=== PATIENT | female | born 1950 | race Caucasian/White ===

== ENCOUNTER 2016-11-26 09:14 | Inpatient (IN) | payer MEDICARE, BC ==
[2016-11-26] VITALS (10 sets, daily range): BP systolic 98–148; BP diastolic 55–74
[~2016-11-26] VITALS: Ht 157.5 cm; Wt 93.9 kg
[2016-11-26] MEDS ORDERED: IPRA3AMP NEB (11:04)
[2016-11-26] MEDS ORDERED: AZIT250T6 PO (11:04)
[2016-11-26] MEDS ORDERED: CEFP200T PO (11:04)
[2016-11-26] MEDS ORDERED: HYDR12.58 PO (11:04)
[2016-11-26] MEDS ORDERED: ESCI10TA PO (11:04)
[2016-11-26] MEDS ORDERED: METO25TA9 PO (11:07)
[2016-11-26] MEDS ORDERED: ATOR40TA PO (11:07)
[2016-11-26] MEDS ORDERED: METF500T4 PO (11:07)
[2016-11-26] MEDS ORDERED: OSEL75CA PO (11:07)
[2016-11-26] MEDS ORDERED: OMEP20TA PO (11:07)
[2016-11-26] MEDS ORDERED: OXYCODONE/APAP 5/325 TABLET. PO PRN (11:15)
[2016-11-26] MEDS ORDERED: ONDANSETRON PF 4 MG/2 ML VIAL. IV PRN (11:15)
[2016-11-26] MEDS ORDERED: DEXTROSE 50% 25 GM / 50ML DISP.SYRIN. IV PRN (11:15)
[2016-11-26] MEDS ORDERED: PIP/TAZO PER PHARMACY MC PRN (11:15)
[2016-11-26] MEDS: LOSARTAN POTASSIUM 50 MG TABLET. PO SCH (11:30)
[2016-11-26] MEDS: HYDROMORPHONE 2 MG/ML VIAL. IV PRN ×5 (11:30→22:38)
[2016-11-26] MEDS: INSULIN ASPART 300 UNITS/3 ML INSULN.PEN SQ SCH ×2 (12:00→17:00)
--- NOTE | 2016-11-26 12:45 | PDOC2 ---
CARDIAC CONSULT DATE OF CONSULT Date of Consult DATE: 11/26/16 TIME: 12:33 REASON FOR CONSULT Reason for Consult: ?diastolic CHF REFERRING PHYSICIAN Referring Physician: Mukesh SOURCE Source: Chart review, Patient HISTORY OF PRESENT ILLNESS HISTORY OF PRESENT ILLNESS This is a pleasant 66 yo female admitted for complains of increasing SOA. She recently was treated for flu and pneumonia and due to this her activities after discharge has been decreased. She was treated with antibiotics and prednisone. Friday last week she actually went to the grocery store and did well. She felt flushed after gorcery shopping but there was no symptoms of SOA or upper torso pain. The following day Friday she started having right back pain that eventually radiated to right shoulder and hip area. This eventually developed further with SOA, GARCIA, and nonproductive cough. She then proceeded to [place] [facility] and she was noted with bilateral PE. Consult is for possible diastolic CHF. Reports of no prior hx of CHF, nor PE, clotting disorders and this is actually the first time she has had PE. No prior DVTs, falls, LE injury. She is positive for HLP, HTN, DM2 but no hx of CAD, CVA, [place]. Reports that her father had cancer when he was in his 50s and also end up having DVT and PE. Her aunt had PE which was likely related to surgery when she was in her 80s and actually from this. To add from her previous hospitalization she did have a description of possible phlebitis as she described her vein in her left arm skin being blotchy, swollen arm with hard vein. PAST MEDICAL HISTORY Cardiovascular: HTN, Hyperlipidemia Pulmonary: Pneumonia (recent flu) CENTRAL NERVOUS SYSTEM: Other (No pertinent history) GI: Diverticulosis, GERD, Other (barretts esophagus; hiatal and umbilical hernia) Heme/Onc: No pertinent hx Hepatobiliary: Cholelithiasis Psych: No pertinent hx Musculoskeletal: Osteoarthritis ENT: Allergic Rhinitis Renal/: UTI Endocrine: Diabetes (2) Dermatology: No pertinent hx PAST SURGICAL HISTORY Past Surgical History: Cholecystectomy, (x2), Tonsillectomy, Other ( hemorroidectomy; EGD 3 yrs ago noted clearance of barretts) FAMILY HISTORY Family History: Cancer (father), Other (DVT/PE father, aunt father side PE) SOCIAL HISTORY Smoke: No ALCOHOL: none Drugs: None Lives: with Family CURRENT MEDICATIONS CURRENT MEDICATIONS Current Medications Medications (Trade) Dose Ordered Sig/Yao Route PRN Reason Start Time Stop Time Status Last Admin Dose Admin Hydromorphone HCl (Dilaudid) 1 mg PRN Q2HR PRN IV SEVERE PAIN 11/26/16 11:00 11/26/16 11:30 ALLERGIES ALLERGIES: Coded Allergies: codeine (Verified Allergy, Unknown, 11/26/16) ROS Review of System 14 point ROS evaluated with pertinent positives noted per HPI PHYSICAL EXAM General: Alert, Oriented X3, Cooperative, No acute distress HEENT: Atraumatic, Mucous membr. moist/pink Lungs: Other (bibasilarc crackles) Heart: Regular rate (no significnat ectopies), Normal S1, Normal S2, Other (3/ 6 systolic murmur to LLS and PRISCILLA border) Abdomen: Soft, No tenderness Extremities: No cyanosis, Other (trace LE edemaq) Skin: No breakdown, No significant lesion Neuro: Normal speech, Sensation intact Psych/Mental Status: Mental status NL, Mood NL MUSCULOSKELETAL: Osteoarthritic changes both hands VITALS VITALS Vital Signs Date Time Temp Pulse Resp B/P Pulse Ox O2 Delivery O2 Flow Rate FiO2 11/26/16 11:30 20 Nasal Cannula 5.0 ASSESSMENT/PLAN ASSESSMENT/PLAN 1. Bilateral PE with left pleural effusion: no LE DVT 2. Warfarin therapy: INR 5.5. Hgb 9.5 3. Recent left arm phlebitis: no DVT, Extensive occlusive superficial venous thrombosis involving the left basilic vein. 4. Acute diastolic CHF: induced by PE. EKG SR with LVH/S1Q3T3. Appears compensated. 5. HTN: controlled 6. DM2/HLP 7. Family hx of CA/DVT/PE: father and aunt 8. Hypokalemia: corrected 9. Hepatic lesion Recommendations 1. 11/25/2015 TTE with normal wall motion, EF 55-60%, mid MR/mod TR with RSVP of 56 mmHg. PE treatment per pulmonary 2. Continue with antiHTN- BB/ARB 3. Pro NT BNP, TSH. Coag w/u per PCP/pulmonary 4. Hemodynamically stable. No further workup is warranted at this time. 5. Continue with secondary prevention Problems: JERED DELGADO APRN Nov 26, 2016 12:45
--- NOTE | 2016-11-26 13:05 | PDOC ---
Provider Note Provider Note DICTATED XI MAGAÑA MD Nov 26, 2016 13:05
--- NOTE | 2016-11-26 13:19 | CONS ---
DATE OF CONSULTATION: ATTENDING PHYSICIAN: Dr. Mayorga. REASON FOR CONSULTATION: Hypoxic respiratory failure and pulmonary embolism. HISTORY OF PRESENT ILLNESS: The patient is a 66-year-old female who was hospitalized around end of October and was treated for influenza pneumonia and sepsis. She was subsequently discharged home. She was brought into the hospital at [facility] with sudden onset of shortness of breath and also mid thoracic back pain. She was seen in the Emergency Room where a CT angiogram of the chest was performed and showed bilateral pulmonary emboli, more on the left than on the right. I have reviewed the CT chest myself. The patient also had some mild ground glass lung infiltrates with lower lobes and at that time, she was treated with anticoagulation. While in the hospital, her oxygen requirement did increase. She did gain 9 pounds while in the hospital. Since her oxygen requirement increased, another CT angiogram was performed on the , which was reviewed by me. Overall, there was no significant change, may be slight mild improvement on the right side. She had a large hiatal hernia. There was some fluid in the esophagus. The CT abdomen and pelvis continued to have a lesion in the liver. The patient also has some scattered small sclerotic foci in the osseous structures. The radiologist suggested an MRI of the abdomen. The patient is transferred to [facility] for further evaluation. she is currently requiring a simple facemask, saturation of 97-98%. She feels comfortable with no obvious respiratory distress. She has no increased chest pain. She has a mild cough. No calf pain. The patient's all imaging studies were reviewed. PAST MEDICAL HISTORY: Significant for hypertension, type 2 diabetes, hyperlipidemia, osteoarthritis, gastroesophageal reflux disease and history of recent influenza. PAST SURGICAL HISTORY: Cholecystectomy, tonsillectomy, , hemorrhoidectomy, EGD and she had a mammogram done in the past as well. ALLERGIES: CODEINE. MEDICATIONS: Upon transfer were reviewed. FAMILY HISTORY: Her mother had pulmonary embolism. Her father had cancer and also DVT in his 50s. Mother at age 74 due to CVA. SOCIAL HISTORY: She is , has 2 daughters, nonsmoker, nonalcoholic. REVIEW OF SYSTEMS: Twelve-point systems obtained. Pertinent positives discussed in history of present illness, otherwise noncontributory. All systems that were negative were reviewed as well. PHYSICAL EXAMINATION: GENERAL: She is awake, following commands. VITAL SIGNS: Blood pressure 112 systolic. Pulse ox is 97% on 5 liters. Afebrile. HEENT: Sclerae nonicteric. NECK: Supple. LUNGS: Diminished breath sounds. CARDIOVASCULAR: Regular rate and rhythm. ABDOMEN: Soft, nontender. EXTREMITIES: With no pitting edema. LABORATORY DATA: From [facility] were reviewed. IMAGING STUDIES: From [facility] were reviewed as well. IMPRESSION: 1. Acute pulmonary embolism in a patient who was hospitalized for influenza at the end of October and most likely immobilization was a risk factor. However, she does have a family history of thromboembolic disease and I would like to rule out hypercoagulable state. She has an abnormal liver lesion and the possibility for malignancy contributing to PE cannot be ruled out. She has some sclerotic lesions in the bones as well. 2. Acute hypoxic respiratory failure. I suspect this is secondary to pulmonary embolism; the followup CT chest has shown no further worsening. There are some ground glass infiltrates, which may suggest some mild pulmonary edema. She did gain 9 pounds while in the hospital. At this point, I would hold off on Lasix until blood pressure more stabilizes. 3. No significant history of tobacco use. 4. Abnormal CT abdomen and pelvis with suspected lesion in the liver and sclerotic lesions in the bones. She also has hiatal hernia with some dilated esophagus. We will get a CT of the liver or MRI of the liver to get a better idea about any malignancy. RECOMMENDATIONS: 1. Continue with present 5 liters of oxygen. 2. Mild diuresis if blood pressures remained stable. 3. Obtain MRI of the liver vs US liver 4. Obtain a hypercoagulable panel. 5. Continue with present full anticoagulation. 6. She will need a minimum of 3-6 months of anticoagulation. 7. Repeat CT chest in 4-6 weeks. 8. Emperic antibiotics 9. Discussed in detail with the patient's and also with Dr. Mayorga and will follow along with you. Critical care time 45 minutes. XI MAGAÑA MD DR: VANDANA/camila JOB#: [id number] / [id number] MELISSA
[2016-11-26] MEDS: PIPERACILLIN/TAZOBACTAM 4.5 GM in IV NORMAL SALINE 100ML 100 ML IV SCH ×2 (13:58→23:11)
[2016-11-26 14:26] LABS: BASO % 0 % (0-3); EOS % 0 % (0-3); HEMATOCRIT 30.5 % (36.0-47.0); LYMPH # 0.9 x10^3/uL (1.0-4.8); LYMPH % 6 % (24-48); MEAN CORPUSCULAR HEMOGLOBIN 30 pg (25-35); MEAN CORPUSCULAR HGB CONC 33 g/dL (31-37); MEAN CORPUSCULAR VOLUME 90 fL (79-100); MONO % 7 % (0-9); NEUT % 87 % (31-73); PLATELET COUNT 274 x10^3/uL (140-400); RED CELL DISTRIBUTION WIDTH 15.1 % (11.5-14.5); WHITE BLOOD COUNT 14.8 x10^3/uL (4.0-11.0)
[2016-11-26 14:35] LABS: INR 4.3 (0.8-1.1); PROTHROMBIN TIME PATIENT 39.2 SEC (11.7-14.0)
[2016-11-26 14:40] LABS: CALCIUM 9.8 mg/dL (8.5-10.1); GFR 55.3; POTASSIUM 3.8 mmol/L (3.5-5.1)
[2016-11-26 14:45] LABS: ALBUMIN 2.7 g/dL (3.4-5.0); ALBUMIN/GLOBULIN RATIO 0.6 (1.0-1.7); TOTAL BILIRUBIN 0.3 mg/dL (0.2-1.0); TOTAL PROTEIN 7.6 g/dL (6.4-8.2)
[2016-11-26 14:57] LABS: % EOS 1 % (0-5)
[2016-11-26 14:59] LABS: PLT ESTIMATE ADEQUATE (ADEQUATE); TOXIC GRANULATION SLIGHT
--- NOTE | 2016-11-26 15:47 | RAD ---
Hepatic ultrasound, 11/26/2016: History: Liver lesion seen on CT study An outside CT study from 11/24/2016 demonstrated a a hypervascular lesion in the right lobe of the liver. Sonographic evaluation of the liver failed to delineate this mass, presumably due to technical factors. No hepatic mass or bile duct dilatation is currently seen. Hepatic protocol MR scanning with gadolinium may be useful for further evaluation, if clinically indicated.
[2016-11-26] MEDS: PANTOPRAZOLE 40 MG TABLET. PO SCH (16:00)
[2016-11-26] MEDS: GUAIFENESIN DM 600/30MG TAB.ER.12H. PO SCH ×2 (16:00→19:58)
[2016-11-26] MEDS: LIDOCAINE (700MG/PATCH) PATCH. TD SCH (16:01)
[2016-11-26] MEDS: IPRATRPIUM/ALBUTEROL 0.5/2.5MG 3 ML NEBU. NEB SCH ×2 (17:17→20:27)
[2016-11-26 17:37] LABS: CHOLESTEROL/HDL RATIO 3.8
--- NOTE | 2016-11-26 21:51 | HP ---
ADMIT DATE: 11/26/2016 HISTORY OF PRESENT ILLNESS: The patient is a 66-year-old female patient who was admitted on 11/21/2016 to the Emergency Room of [facility]. She was complaining of pain and swelling of her left upper extremity and also sudden onset of right-sided chest pain and shortness of breath. She does have also cough that is mostly dry. She was discharged from [facility] on 11/04/2016 after she was treated there with influenza A and pneumonia. She was there for about 3 days and treated with Zithromax, Vantin and Tamiflu. She apparently called her primary care physician, Dr. Mar, complaining about her left arm pain and swelling. She also complained of shortness of breath and sudden onset of mid thoracic back pain of 30 minutes duration. She was sent to the Emergency Room for further evaluation. Apparently, her chest x-ray showed minimal visible infiltrate in her right lower lobe and lingula and these infiltrates were much better documented on her recent CT scan. She did have a CT scan of the chest with PE protocol, which showed that the patient has bilateral pulmonary emboli and there was improvement in her right lower lobe lingular and left upper lobe infiltrate since the previous study. She does have mild ground-glass lung infiltrates within the lower lobes bilaterally, which may indicate mild pulmonary edema. She has new finding with small area of nodularity with medial segment of the right middle lobe, mild cardiomegaly, hiatal hernia; however, there was no focal aneurysmal dilatation seen. No aortic dissection is evident. The heart size is mildly enlarged, no pericardial effusion. She has a small hiatal hernia that was present and large axillary lymph node seen. There is a left axillary soft tissue edema consistent with the patient's history of thrombophlebitis. There are some reactive lymph nodes within the mediastinum, the ground glass-lung infiltrate is in both lung lower lobes, which could pulmonary edema, no osteolytic process seen, no adrenal mass is evident. The patient was started on Lovenox 1 mg/kg, was started on IV fluid. Her lactic acid was slightly elevated at 2.6 and has been rising; however, her blood pressure has been if anything high with no documented hypertension. She was on metformin and that was discontinued. She was exposed to the contrast. Subsequent events showed that her lactic acid continued to be persistently elevated and she was treated with IV fluid and also I did start her on vancomycin as well as Zosyn as her white cell count was high at 17,000 and she actually did very well up until Friday morning around 3:00 when she started having severe right-sided chest pain. I did repeat her CT scan, which did not show any new abnormality. She did have Doppler ultrasound of the left upper extremity, which basically showed that the veins that were interrogated include left internal jugular, left subclavian, left axillary, left brachial, left cephalic, left basilic, and left radial and left ulnar veins and superficial venous thrombosis are seen involving the left basilic vein in the forearm and upper arm. Other veins in the left upper extremity are patent and without evidence of venous thrombosis. CT scan of the abdomen and pelvis showed that she has nonspecific lesion in the right lobe of the liver. She has also some sclerotic lesions in the bones and we did actually try to do a bone scan, but the patient was very short of breath and was unable to lie flat. She did have an echocardiogram of her heart, which showed that her left ventricle is normal in size. Left ventricular systolic function is normal with ejection fraction 55-60%. There is borderline concentric left ventricular hypertrophy. There is no significant aortic valvular stenosis. Doppler and color flow revealed no significant aortic regurgitation. Doppler and color flow revealed mild mitral regurgitation. Doppler and color flow revealed moderate tricuspid valve regurgitation, right ventricular systolic pressure of 56 mmHg. There is no evidence of significant pericardial effusion. Her INR was within therapeutic range and in fact yesterday her INR was 5, so we discontinued Lovenox and held Coumadin. Despite this, the patient continued to do poorly. She continued to be complaining of severe right-sided chest pain mostly to be pleuritic, she is hypoxic and has also developed mild respiratory acidosis and carbon dioxide retention and therefore, a decision was made to transfer her to ICU at [facility] to be evaluated by c d still operator and wire bender. PAST MEDICAL HISTORY: Significant for hypertension, type 2 diabetes mellitus, hyperlipidemia, osteoarthritis, gastroesophageal reflux disease. She was admitted recently with bilateral lung infiltrate and influenza, treated with Tamiflu as well as Vantin and Zithromax. PAST SURGICAL HISTORY: Significant for cholecystectomy, tonsillectomy, 2 sections, hemorrhoidectomy. She has also had an EGD before and was found to have gastric ulcer which has completely healed on most recent EGD. She has had also colonoscopy screening and was apparently unremarkable. ALLERGIES: She is allergic to CODEINE. MEDICATIONS: She is currently on the following medications: She is on atorvastatin calcium 40 mg at bedtime, citalopram. She is on guaifenesin DM 600/30 one tablet twice a day, hydromorphone 1 mg IV every 2 hours. She is on NovoLog insulin sliding scale, ipratropium bromide, albuterol inhaler every 4 hours, Lidoderm patch applied topically to the right side of the chest. Stated that she is on linezolid 600 mg IV q. 12 hourly, losartan potassium 50 mg once a day, metoprolol succinate 25 mg once a day, Zofran 4 mg IV every 4 hours, oxycodone/APAP 5/325 one tablet every 6 hours, Protonix 40 mg once a day. She is also on Zosyn 3.375 grams IV q. 8 hourly and warfarin that is on hold. FAMILY HISTORY: She has 1 older brother who has had coronary artery bypass graft surgery x 6 with stent deployment and the younger sister who had CVA at the age of 50. Her father of colon cancer in his 60s and apparently has had DVT in his 50s, he is known to have COPD. Her mother at age of 74 as a complication of cerebrovascular accident. SOCIAL HISTORY: She is , has 2 daughters. She never smoked. Drinks alcohol occasionally. 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 She denied any flying for long distances or driving for long distances. She has not been on any hormone replacement therapy. recent admission for 3 days in the hospital, she has not been sick or bed bound. She has never had any problems during in the form of recurrent miscarriages. PHYSICAL EXAMINATION: GENERAL: On arrival to [facility] she was resting slightly propped up in bed, in no apparent distress. She was pale, but no jaundice, cyanosis or thyromegaly. No jugular venous distention. She has bilateral lower limb edema. VITAL SIGNS: Her heart rate was 74, blood pressure was 110/60, respiratory rate was 24, and oxygen saturation was 98% on 5 liters of oxygen. HEAD, EYES, EARS, NOSE AND THROAT: Showed normocephalic, atraumatic. NECK: Supple. HEART: Showed normal first and second heart sounds with no gallop, rub or murmur. CHEST: Clear to auscultation. No crepitation or rhonchi. ABDOMEN: Distended, soft, nontender. No guarding or rigidity. No organomegaly. Hernial orifices intact. Bowel sounds normal. NEUROLOGIC: She is awake, alert, responding appropriately. Cranial nerves intact. EXTREMITIES: She moves extremities without difficulty. PLAN: My plan is to repeat all her lab work and consult the c d still operator as well as the wire bender and continue all her medication and hold Coumadin as her INR is supratherapeutic. HECTOR ROMERO MD DR: SIMIN/camila JOB#: [id number] / [id number]
[2016-11-26] MEDS: METOPROLOL SUCC 24HR ER 25 MG TAB.ER.24H. PO SCH (22:00)
[2016-11-26] MEDS ORDERED: ALPRAZOLAM 0.25 MG TABLET PO PRN (23:00)
[2016-11-27] VITALS (23 sets, daily range): BP systolic 101–154; BP diastolic 51–79
[2016-11-27] MEDS: HYDROMORPHONE 2 MG/ML VIAL. IV PRN (03:34)
[2016-11-27] MEDS: PIPERACILLIN/TAZOBACTAM 4.5 GM in IV NORMAL SALINE 100ML 100 ML IV SCH ×3 (05:48→21:36)
[2016-11-27] MEDS: IPRATRPIUM/ALBUTEROL 0.5/2.5MG 3 ML NEBU. NEB SCH ×4 (07:39→20:02)
[2016-11-27] MEDS: INSULIN ASPART 300 UNITS/3 ML INSULN.PEN SQ SCH ×3 (08:00→17:00)
[2016-11-27 09:04] LABS: INR 3.1 (0.8-1.1)
[2016-11-27] MEDS: LOSARTAN POTASSIUM 50 MG TABLET. PO SCH (09:05)
[2016-11-27] MEDS: GUAIFENESIN DM 600/30MG TAB.ER.12H. PO SCH ×2 (09:05→21:42)
[2016-11-27] MEDS: LIDOCAINE (700MG/PATCH) PATCH. TD SCH (09:05)
[2016-11-27] MEDS: PANTOPRAZOLE 40 MG TABLET. PO SCH (09:05)
[2016-11-27] MEDS: KETOROLAC 15 MG/ML VIAL. IV PRN ×2 (10:44→16:14)
[2016-11-27] MEDS: FENTANYL 25MCG/HR PATCH. TD SCH (10:44)
[2016-11-27] MEDS ORDERED: FUROSEMIDE 20 MG/2 ML VIAL IVP ONE (11:00)
--- NOTE | 2016-11-27 11:10 | PDOC ---
PULMONARY PROGRESS NOTES Subjective slightly better still c/o right back pain Vitals Vital Signs Date Time Temp Pulse Resp B/P Pulse Ox O2 Delivery O2 Flow Rate FiO2 11/27/16 10:44 92 Nasal Cannula 5.0 11/27/16 10:00 92 20 124/65 11/27/16 08:00 98.1 98.1 General: Alert, No acute distress Lungs: Clear Cardiovascular: S1 Abdomen: Soft Neuro Exam: Alert Extremities: No Edema Skin: Warm Labs Laboratory Tests Test 11/26/16 11:00 11/26/16 13:15 11/26/16 17:35 11/27/16 08:25 Nasal Screen MRSA (PCR) Negative (Negative) White Blood Count 14.8x10^3/uL (4.0-11.0) Red Blood Count 3.40x10^6/uL (3.50-5.40) Hemoglobin 10.0g/dL (12.0-15.5) Hematocrit 30.5% (36.0-47.0) Mean Corpuscular Volume 90fL (79-100) Mean Corpuscular Hemoglobin 30pg (25-35) Mean Corpuscular Hemoglobin Concent 33g/dL (31-37) Red Cell Distribution Width 15.1% (11.5-14.5) Platelet Count 274x10^3/uL (140-400) Neutrophils (%) (Auto) 87% (31-73) Lymphocytes (%) (Auto) 6% (24-48) Monocytes (%) (Auto) 7% (0-9) Eosinophils (%) (Auto) 0% (0-3) Basophils (%) (Auto) 0% (0-3) Neutrophils # (Auto) 12.8x10^3uL (1.8-7.7) Lymphocytes # (Auto) 0.9x10^3/uL (1.0-4.8) Monocytes # (Auto) 1.0x10^3/uL (0.0-1.1) Eosinophils # (Auto) 0.0x10^3/uL (0.0-0.7) Basophils # (Auto) 0.0x10^3/uL (0.0-0.2) Segmented Neutrophils % 86% (35-66) Band Neutrophils % 2% (0-9) Lymphocytes % 6% (24-48) Monocytes % 5% (0-10) Eosinophils % 1% (0-5) Toxic Granulation Slight Platelet Estimate Adequate (ADEQUATE) Prothrombin Time 39.2SEC (11.7-14.0) 30.0SEC (11.7-14.0) Prothromb Time International Ratio 4.3 (0.8-1.1) 3.1 (0.8-1.1) Sodium Level 143mmol/L (136-145) Potassium Level 3.8mmol/L (3.5-5.1) Chloride Level 104mmol/L (98-107) Carbon Dioxide Level 28mmol/L (21-32) Anion Gap 11 (6-14) Blood Urea Nitrogen 22mg/dL (7-20) Creatinine 1.0mg/dL (0.6-1.0) Estimated GFR (Cockcroft-Gault) 55.3 BUN/Creatinine Ratio 22 (6-20) Glucose Level 120mg/dL (70-99) Calcium Level 9.8mg/dL (8.5-10.1) Magnesium Level 2.2mg/dL (1.8-2.4) Total Bilirubin 0.3mg/dL (0.2-1.0) Aspartate Amino Transf (AST/SGOT) 35U/L (15-37) Alanine Aminotransferase (ALT/SGPT) 72U/L (14-59) Alkaline Phosphatase 81U/L (46-116) NP-Yhb-Y-Type Natriuretic Peptide 554pg/mL (0-124) Total Protein 7.6g/dL (6.4-8.2) Albumin 2.7g/dL (3.4-5.0) Albumin/Globulin Ratio 0.6 (1.0-1.7) Triglycerides Level 136mg/dL (0-150) Cholesterol Level 195mg/dL (0-200) LDL Cholesterol, Calculated 117mg/dL (0-100) VLDL Cholesterol, Calculated 27mg/dL (0-40) HDL Cholesterol 51mg/dL (40-60) Cholesterol/HDL Ratio 3.8 Thyroid Stimulating Hormone (TSH) 0.433uIU/mL (0.358-3.74) Glucose (Fingerstick) 105mg/dL (70-99) Test 11/27/16 08:58 Glucose (Fingerstick) 118mg/dL (70-99) Laboratory Tests Test 11/26/16 13:15 11/26/16 17:35 11/27/16 08:25 11/27/16 08:58 White Blood Count 14.8x10^3/uL (4.0-11.0) Red Blood Count 3.40x10^6/uL (3.50-5.40) Hemoglobin 10.0g/dL (12.0-15.5) Hematocrit 30.5% (36.0-47.0) Mean Corpuscular Volume 90fL (79-100) Mean Corpuscular Hemoglobin 30pg (25-35) Mean Corpuscular Hemoglobin Concent 33g/dL (31-37) Red Cell Distribution Width 15.1% (11.5-14.5) Platelet Count 274x10^3/uL (140-400) Neutrophils (%) (Auto) 87% (31-73) Lymphocytes (%) (Auto) 6% (24-48) Monocytes (%) (Auto) 7% (0-9) Eosinophils (%) (Auto) 0% (0-3) Basophils (%) (Auto) 0% (0-3) Neutrophils # (Auto) 12.8x10^3uL (1.8-7.7) Lymphocytes # (Auto) 0.9x10^3/uL (1.0-4.8) Monocytes # (Auto) 1.0x10^3/uL (0.0-1.1) Eosinophils # (Auto) 0.0x10^3/uL (0.0-0.7) Basophils # (Auto) 0.0x10^3/uL (0.0-0.2) Segmented Neutrophils % 86% (35-66) Band Neutrophils % 2% (0-9) Lymphocytes % 6% (24-48) Monocytes % 5% (0-10) Eosinophils % 1% (0-5) Toxic Granulation Slight Platelet Estimate Adequate (ADEQUATE) Prothrombin Time 39.2SEC (11.7-14.0) 30.0SEC (11.7-14.0) Prothromb Time International Ratio 4.3 (0.8-1.1) 3.1 (0.8-1.1) Sodium Level 143mmol/L (136-145) Potassium Level 3.8mmol/L (3.5-5.1) Chloride Level 104mmol/L (98-107) Carbon Dioxide Level 28mmol/L (21-32) Anion Gap 11 (6-14) Blood Urea Nitrogen 22mg/dL (7-20) Creatinine 1.0mg/dL (0.6-1.0) Estimated GFR (Cockcroft-Gault) 55.3 BUN/Creatinine Ratio 22 (6-20) Glucose Level 120mg/dL (70-99) Calcium Level 9.8mg/dL (8.5-10.1) Magnesium Level 2.2mg/dL (1.8-2.4) Total Bilirubin 0.3mg/dL (0.2-1.0) Aspartate Amino Transf (AST/SGOT) 35U/L (15-37) Alanine Aminotransferase (ALT/SGPT) 72U/L (14-59) Alkaline Phosphatase 81U/L (46-116) ST-Tvw-O-Type Natriuretic Peptide 554pg/mL (0-124) Total Protein 7.6g/dL (6.4-8.2) Albumin 2.7g/dL (3.4-5.0) Albumin/Globulin Ratio 0.6 (1.0-1.7) Triglycerides Level 136mg/dL (0-150) Cholesterol Level 195mg/dL (0-200) LDL Cholesterol, Calculated 117mg/dL (0-100) VLDL Cholesterol, Calculated 27mg/dL (0-40) HDL Cholesterol 51mg/dL (40-60) Cholesterol/HDL Ratio 3.8 Thyroid Stimulating Hormone (TSH) 0.433uIU/mL (0.358-3.74) Glucose (Fingerstick) 105mg/dL (70-99) 118mg/dL (70-99) Medications Active Scripts Medications Dose Route/Sig Days Date Category Tamiflu (Oseltamivir Phosphate) 75 Mg Capsule 75 Mg PO BID 11/26/16 Reported Omeprazole 20 Mg Tablet.dr 20 Mg PO DAILY 11/26/16 Reported Metoprolol Succinate ( Xl ) (Metoprolol Succinate) 25 Mg Tab.er.24h 50 Mg PO DAILY 11/26/16 Reported Metformin Hcl 500 Mg Tablet 500 Mg PO DAILY08 11/26/16 Reported Lipitor (Atorvastatin Calcium) 40 Mg Tablet 40 Mg PO HS 11/26/16 Reported Escitalopram Oxalate 10 Mg Tablet 1 Tab PO DAILY 11/26/16 Reported Duoneb 0.5-3(2.5) Mg/3 Ml (Albuterol/Ipratropium) 3 Ml Ampul.neb 3 Ml NEB QID 11/26/16 Reported Hydrochlorothiazide Tablet (Hydrochlorothiazide) 12.5 Mg Tablet 12.5 Mg PO DAILY 11/26/16 Reported Cefpodoxime Proxetil 200 Mg Tablet 200 Mg PO BID 11/26/16 Reported Azithromycin Tablet (Azithromycin) 250 Mg Tablet 250 Mg PO PRN DAILY 11/26/16 Reported Impression . 1. Acute pulmonary embolism in a patient who was hospitalized for influenza at the end of October and most likely immobilization was a risk factor. However, she does have a family history of thromboembolic disease and I would like to rule out hypercoagulable state. She has an abnormal liver lesion and the possibility for malignancy contributing to PE cannot be ruled out. She has some sclerotic lesions in the bones as well. 2. Acute hypoxic respiratory failure. I suspect this is secondary to pulmonary embolism; the followup CT chest has shown no further worsening. There are some ground glass infiltrates, which may suggest some mild pulmonary edema. She did gain 9 pounds while in the hospital. At this point, I would hold off on Lasix until blood pressure more stabilizes. 3. No significant history of tobacco use. 4. Abnormal CT abdomen and pelvis with suspected lesion in the liver and sclerotic lesions in the bones. She also has hiatal hernia with some dilated esophagus. We will get a CT of the liver or MRI of the liver to get a better idea about any malignancy. Plan . 1. wean oxygen. 2. Mild diuresis today 3. Obtain MRI of the liver / US liver non diagnostic 4. hypercoagulable panel. 5. Continue with present full anticoagulation once INR normalizes 6. She will need a minimum of 3-6 months of anticoagulation. 7. Repeat CT chest in 4-6 weeks. 8. Emperic antibiotics 9. Discussed in detail with the patient's and also with Dr. Mayorga and will follow along with you. XI MAGAÑA MD Nov 27, 2016 11:10
[2016-11-27 11:23] LABS: HOMOCYSTINE LEVEL 7.6 umol/L (0.0-15.0)
[2016-11-27] MEDS ORDERED: MEXI200C PO (11:46)
[2016-11-27] MEDS ORDERED: LORA-434 PO (11:46)
[2016-11-27] MEDS ORDERED: LORA2TAB89 PO (11:46)
[2016-11-27] MEDS ORDERED: FAMO-63 PO (11:46)
[2016-11-27] MEDS ORDERED: SPIR25TA3 PO (11:46)
[2016-11-27] MEDS ORDERED: PANT40GR PO (11:46)
[2016-11-27] MEDS ORDERED: ESZO3TAB9 PO (11:46)
[2016-11-27] MEDS ORDERED: HYDR-2679 PO (11:46)
[2016-11-27] MEDS ORDERED: ALBU2.5V5 NEB (11:46)
[2016-11-27] MEDS ORDERED: GABA-585 PO (11:46)
[2016-11-27] MEDS ORDERED: OLAN5TAB3 PO (11:46)
[2016-11-27] MEDS ORDERED: DIVA500T4 PO (11:46)
[2016-11-27] MEDS ORDERED: DOCU-27 PO (11:46)
[2016-11-27] MEDS ORDERED: MAGN400T3 PO (11:46)
[2016-11-27] MEDS ORDERED: FURO-68 PO (11:46)
[2016-11-27] MEDS ORDERED: NITR1PAT9 TD (11:46)
[2016-11-27] MEDS ORDERED: FLUO20CA16 PO (11:46)
[2016-11-27] MEDS ORDERED: METO25TA4 PO (11:46)
[2016-11-27] MEDS ORDERED: METO5TAB4 PO (11:46)
[2016-11-27] MEDS ORDERED: GADOBUTROL 10 MMOL/10 ML VIAL IV ONE (14:00)
--- NOTE | 2016-11-27 15:12 | RAD ---
EXAM: MRI abdomen with and without contrast HISTORY: Liver lesion on prior CT TECHNIQUE: MRI of the abdomen was performed before and after the intravenous administration of 10 mL Gadavist. COMPARISON: Prior ultrasound and CT. FINDINGS: Liver: Hepatic parenchymal signal loss on opposed phase images indicates mild diffuse hepatic steatosis. Postcontrast analysis is limited by delayed contrast timing on most series given and injector malfunction. There is a T2 hyperintense, enhancing mass in hepatic segment 7 that measures 2.0 x 1.6 cm. Enhancement is persistent and matches the aorta on all series. This is consistent with a benign hemangioma. Biliary tree: The gallbladder is surgically absent. The common duct is mildly dilated at 8 mm. There is no dislocation or lesion. There are no suspicious pancreatic parenchymal lesions. The pancreatic duct is not dilated. Other findings: There is a moderate to large hiatal hernia. The spleen, adrenal glands and kidneys are unremarkable. Stool throughout the colon is consistent with constipation. There is atelectasis or consolidation in the right greater than left lung bases. There is a small right pleural effusion. The heart is at least mildly enlarged. IMPRESSION: 1. 2.0 cm mass in the right hepatic lobe consistent with a benign hemangioma. 2. Mild diffuse hepatic steatosis. 3. Mild extrahepatic biliary dilatation status post cholecystectomy. Correlate for cholestasis to assess significance. 4. Moderate to large hiatal hernia. 5. Right greater than left basilar atelectasis or infiltrate. Small right pleural effusion. 6. At least mild cardiomegaly.
[2016-11-27] MEDS: METOPROLOL SUCC 24HR ER 25 MG TAB.ER.24H. PO SCH (21:30)
[2016-11-28] VITALS (13 sets, daily range): BP systolic 107–154; BP diastolic 53–84
[2016-11-28] MEDS: KETOROLAC 15 MG/ML VIAL. IV PRN ×2 (05:26→19:36)
[2016-11-28] MEDS: PIPERACILLIN/TAZOBACTAM 4.5 GM in IV NORMAL SALINE 100ML 100 ML IV SCH (05:28)
[2016-11-28 05:42] LABS: BASO % 0 % (0-3); EOS % 4 % (0-3); HEMATOCRIT 27.1 % (36.0-47.0); HEMOGLOBIN 9.1 g/dL (12.0-15.5); LYMPH # 1.7 x10^3/uL (1.0-4.8); LYMPH % 31 % (24-48); MEAN CORPUSCULAR HEMOGLOBIN 30 pg (25-35); MEAN CORPUSCULAR HGB CONC 34 g/dL (31-37); MEAN CORPUSCULAR VOLUME 90 fL (79-100); MONO % 12 % (0-9); NEUT % 53 % (31-73); PLATELET COUNT 265 x10^3/uL (140-400); RED BLOOD COUNT 3.01 x10^6/uL (3.50-5.40); RED CELL DISTRIBUTION WIDTH 15.6 % (11.5-14.5); WHITE BLOOD COUNT 5.6 x10^3/uL (4.0-11.0)
--- NOTE | 2016-11-28 05:50 | PN ---
DATE: 11/27/2016 SUBJECTIVE: The patient was sitting in a wheelchair on her way to the MRI. When questioning her, stated that her pain is much improved, has no shortness of breath. She was evaluated by Dr. Bearden and the cardiology team. No further cardiac workup was recommended by the cardiology team and Dr. Bearden recommended continuing full anticoagulation. We did ultrasound of the abdomen, which was basically unremarkable. The CT scan done at [facility] demonstrated hypervascular lesion in the right lobe of the liver; however, sonographic evaluation there failed to delineate this mass, presumably due to technical factors. No hepatic mass or bile duct dilatation is currently seen. Hepatic protocol MR was suggested and the patient is scheduled to have that done today. PHYSICAL EXAMINATION: GENERAL: When I examined her, she looked well and was clearly in no apparent respiratory distress. She was slightly pale, but no jaundice, cyanosis or thyromegaly. No jugular venous distension. No limb edema. VITAL SIGNS: Her heart rate was 97, blood pressure was 113/60, temperature was 97.6, respiratory rate 20, and oxygen saturation was 91% on 3 liters of oxygen. HEAD, EYES, EARS, NOSE AND THROAT: Normocephalic, atraumatic. NECK: Supple. HEART: Showed normal first and second heart sounds with no gallop, rub or murmur. CHEST: Clear to auscultation. No crepitation or rhonchi. ABDOMEN: Distended, soft, nontender. NEUROLOGIC: She is awake, alert, responding appropriately. Cranial nerves intact. She moves all extremities without difficulty. Her intake over the last 24 hours was 650, output was 900. LABORATORY DATA: Showed a white cell count of 14,800, hemoglobin 10, hematocrit 30, MCV 90 and platelet count 274,000. Her chemistry showed a serum sodium 143, potassium 3.8, chloride 104, bicarbonate 28, anion gap of 11, BUN 22, creatinine 1, estimated GFR was 55 mL per minute. Her glucose was 120, calcium was 9.8, magnesium was 2.2. Total bilirubin, AST, ALT, alkaline phosphatase were normal. Pro B-type natriuretic peptide was 554, total protein was 7.6, albumin was 2.7. TSH is normal at 0.43. Her prothrombin time this morning was 30. INR of 3.1. Her nasal screen for MRSA by PCR was negative. PLAN: To continue with full anticoagulation. Continue with IV antibiotics for now, continue with pain management, antihypertensive medication. Continue to monitor her blood sugars and adjust insulin as needed. We will await the results of the MRA of the liver and decide on further management accordingly. She has also some sclerotic lesion on her bones and she might require a bone scan to elaborate this further. HECTOR ROMERO MD DR: SIMIN/camila JOB#: [id number] / [id number]
[2016-11-28 05:53] LABS: INR 2.7 (0.8-1.1)
[2016-11-28 06:36] LABS: ALBUMIN 2.4 g/dL (3.4-5.0); ALBUMIN/GLOBULIN RATIO 0.6 (1.0-1.7); CALCIUM 9.1 mg/dL (8.5-10.1); CREATININE 0.8 mg/dL (0.6-1.0); GFR 71.5; POTASSIUM 3.6 mmol/L (3.5-5.1); TOTAL BILIRUBIN 0.3 mg/dL (0.2-1.0); TOTAL PROTEIN 6.5 g/dL (6.4-8.2)
[2016-11-28] MEDS: IPRATRPIUM/ALBUTEROL 0.5/2.5MG 3 ML NEBU. NEB SCH ×2 (07:10→11:40)
[2016-11-28] MEDS: INSULIN ASPART 300 UNITS/3 ML INSULN.PEN SQ SCH ×3 (08:00→17:00)
[2016-11-28] MEDS: PANTOPRAZOLE 40 MG TABLET. PO SCH (08:28)
[2016-11-28] MEDS: GUAIFENESIN DM 600/30MG TAB.ER.12H. PO SCH ×2 (08:28→21:46)
[2016-11-28] MEDS: LOSARTAN POTASSIUM 50 MG TABLET. PO SCH (08:28)
[2016-11-28] MEDS: LIDOCAINE (700MG/PATCH) PATCH. TD SCH (08:29)
--- NOTE | 2016-11-28 10:46 | PDOC ---
PULMONARY PROGRESS NOTES Subjective FEELS better off oxygen Vitals Vital Signs Date Time Temp Pulse Resp B/P Pulse Ox O2 Delivery O2 Flow Rate FiO2 11/28/16 09:00 80 22 134/65 94 Room Air 11/28/16 08:00 98.3 2.0 98.3 General: Alert, No acute distress Lungs: Clear Cardiovascular: S1 Abdomen: Soft Neuro Exam: Alert Extremities: No Edema Skin: Warm Labs Laboratory Tests Test 11/26/16 11:00 11/26/16 13:15 11/26/16 17:35 11/27/16 08:25 Nasal Screen MRSA (PCR) Negative (Negative) White Blood Count 14.8x10^3/uL (4.0-11.0) Red Blood Count 3.40x10^6/uL (3.50-5.40) Hemoglobin 10.0g/dL (12.0-15.5) Hematocrit 30.5% (36.0-47.0) Mean Corpuscular Volume 90fL (79-100) Mean Corpuscular Hemoglobin 30pg (25-35) Mean Corpuscular Hemoglobin Concent 33g/dL (31-37) Red Cell Distribution Width 15.1% (11.5-14.5) Platelet Count 274x10^3/uL (140-400) Neutrophils (%) (Auto) 87% (31-73) Lymphocytes (%) (Auto) 6% (24-48) Monocytes (%) (Auto) 7% (0-9) Eosinophils (%) (Auto) 0% (0-3) Basophils (%) (Auto) 0% (0-3) Neutrophils # (Auto) 12.8x10^3uL (1.8-7.7) Lymphocytes # (Auto) 0.9x10^3/uL (1.0-4.8) Monocytes # (Auto) 1.0x10^3/uL (0.0-1.1) Eosinophils # (Auto) 0.0x10^3/uL (0.0-0.7) Basophils # (Auto) 0.0x10^3/uL (0.0-0.2) Segmented Neutrophils % 86% (35-66) Band Neutrophils % 2% (0-9) Lymphocytes % 6% (24-48) Monocytes % 5% (0-10) Eosinophils % 1% (0-5) Toxic Granulation Slight Platelet Estimate Adequate (ADEQUATE) Prothrombin Time 39.2SEC (11.7-14.0) 30.0SEC (11.7-14.0) Prothromb Time International Ratio 4.3 (0.8-1.1) 3.1 (0.8-1.1) Sodium Level 143mmol/L (136-145) Potassium Level 3.8mmol/L (3.5-5.1) Chloride Level 104mmol/L (98-107) Carbon Dioxide Level 28mmol/L (21-32) Anion Gap 11 (6-14) Blood Urea Nitrogen 22mg/dL (7-20) Creatinine 1.0mg/dL (0.6-1.0) Estimated GFR (Cockcroft-Gault) 55.3 BUN/Creatinine Ratio 22 (6-20) Glucose Level 120mg/dL (70-99) Calcium Level 9.8mg/dL (8.5-10.1) Magnesium Level 2.2mg/dL (1.8-2.4) Total Bilirubin 0.3mg/dL (0.2-1.0) Aspartate Amino Transf (AST/SGOT) 35U/L (15-37) Alanine Aminotransferase (ALT/SGPT) 72U/L (14-59) Alkaline Phosphatase 81U/L (46-116) KH-Cxn-E-Type Natriuretic Peptide 554pg/mL (0-124) Total Protein 7.6g/dL (6.4-8.2) Albumin 2.7g/dL (3.4-5.0) Albumin/Globulin Ratio 0.6 (1.0-1.7) Triglycerides Level 136mg/dL (0-150) Cholesterol Level 195mg/dL (0-200) LDL Cholesterol, Calculated 117mg/dL (0-100) VLDL Cholesterol, Calculated 27mg/dL (0-40) HDL Cholesterol 51mg/dL (40-60) Cholesterol/HDL Ratio 3.8 Homocystine 7.6umol/L (0.0-15.0) Thyroid Stimulating Hormone (TSH) 0.433uIU/mL (0.358-3.74) Glucose (Fingerstick) 105mg/dL (70-99) Test 11/27/16 08:58 11/27/16 13:10 11/27/16 17:50 11/27/16 21:00 Glucose (Fingerstick) 118mg/dL (70-99) 111mg/dL (70-99) 106mg/dL (70-99) 129mg/dL (70-99) Test 11/28/16 04:50 White Blood Count 5.6x10^3/uL (4.0-11.0) Red Blood Count 3.01x10^6/uL (3.50-5.40) Hemoglobin 9.1g/dL (12.0-15.5) Hematocrit 27.1% (36.0-47.0) Mean Corpuscular Volume 90fL (79-100) Mean Corpuscular Hemoglobin 30pg (25-35) Mean Corpuscular Hemoglobin Concent 34g/dL (31-37) Red Cell Distribution Width 15.6% (11.5-14.5) Platelet Count 265x10^3/uL (140-400) Neutrophils (%) (Auto) 53% (31-73) Lymphocytes (%) (Auto) 31% (24-48) Monocytes (%) (Auto) 12% (0-9) Eosinophils (%) (Auto) 4% (0-3) Basophils (%) (Auto) 0% (0-3) Neutrophils # (Auto) 3.0x10^3uL (1.8-7.7) Lymphocytes # (Auto) 1.7x10^3/uL (1.0-4.8) Monocytes # (Auto) 0.7x10^3/uL (0.0-1.1) Eosinophils # (Auto) 0.2x10^3/uL (0.0-0.7) Basophils # (Auto) 0.0x10^3/uL (0.0-0.2) Prothrombin Time 27.0SEC (11.7-14.0) Prothromb Time International Ratio 2.7 (0.8-1.1) Sodium Level 144mmol/L (136-145) Potassium Level 3.6mmol/L (3.5-5.1) Chloride Level 107mmol/L (98-107) Carbon Dioxide Level 27mmol/L (21-32) Anion Gap 10 (6-14) Blood Urea Nitrogen 23mg/dL (7-20) Creatinine 0.8mg/dL (0.6-1.0) Estimated GFR (Cockcroft-Gault) 71.5 BUN/Creatinine Ratio 29 (6-20) Glucose Level 102mg/dL (70-99) Calcium Level 9.1mg/dL (8.5-10.1) Total Bilirubin 0.3mg/dL (0.2-1.0) Aspartate Amino Transf (AST/SGOT) 26U/L (15-37) Alanine Aminotransferase (ALT/SGPT) 54U/L (14-59) Alkaline Phosphatase 68U/L (46-116) Total Protein 6.5g/dL (6.4-8.2) Albumin 2.4g/dL (3.4-5.0) Albumin/Globulin Ratio 0.6 (1.0-1.7) Laboratory Tests Test 11/27/16 13:10 11/27/16 17:50 11/27/16 21:00 11/28/16 04:50 Glucose (Fingerstick) 111mg/dL (70-99) 106mg/dL (70-99) 129mg/dL (70-99) White Blood Count 5.6x10^3/uL (4.0-11.0) Red Blood Count 3.01x10^6/uL (3.50-5.40) Hemoglobin 9.1g/dL (12.0-15.5) Hematocrit 27.1% (36.0-47.0) Mean Corpuscular Volume 90fL (79-100) Mean Corpuscular Hemoglobin 30pg (25-35) Mean Corpuscular Hemoglobin Concent 34g/dL (31-37) Red Cell Distribution Width 15.6% (11.5-14.5) Platelet Count 265x10^3/uL (140-400) Neutrophils (%) (Auto) 53% (31-73) Lymphocytes (%) (Auto) 31% (24-48) Monocytes (%) (Auto) 12% (0-9) Eosinophils (%) (Auto) 4% (0-3) Basophils (%) (Auto) 0% (0-3) Neutrophils # (Auto) 3.0x10^3uL (1.8-7.7) Lymphocytes # (Auto) 1.7x10^3/uL (1.0-4.8) Monocytes # (Auto) 0.7x10^3/uL (0.0-1.1) Eosinophils # (Auto) 0.2x10^3/uL (0.0-0.7) Basophils # (Auto) 0.0x10^3/uL (0.0-0.2) Prothrombin Time 27.0SEC (11.7-14.0) Prothromb Time International Ratio 2.7 (0.8-1.1) Sodium Level 144mmol/L (136-145) Potassium Level 3.6mmol/L (3.5-5.1) Chloride Level 107mmol/L (98-107) Carbon Dioxide Level 27mmol/L (21-32) Anion Gap 10 (6-14) Blood Urea Nitrogen 23mg/dL (7-20) Creatinine 0.8mg/dL (0.6-1.0) Estimated GFR (Cockcroft-Gault) 71.5 BUN/Creatinine Ratio 29 (6-20) Glucose Level 102mg/dL (70-99) Calcium Level 9.1mg/dL (8.5-10.1) Total Bilirubin 0.3mg/dL (0.2-1.0) Aspartate Amino Transf (AST/SGOT) 26U/L (15-37) Alanine Aminotransferase (ALT/SGPT) 54U/L (14-59) Alkaline Phosphatase 68U/L (46-116) Total Protein 6.5g/dL (6.4-8.2) Albumin 2.4g/dL (3.4-5.0) Albumin/Globulin Ratio 0.6 (1.0-1.7) Medications Active Scripts Medications Dose Route/Sig Days Date Category Tamiflu (Oseltamivir Phosphate) 75 Mg Capsule 75 Mg PO BID 11/26/16 Reported Omeprazole 20 Mg Tablet.dr 20 Mg PO DAILY 11/26/16 Reported Metoprolol Succinate ( Xl ) (Metoprolol Succinate) 25 Mg Tab.er.24h 50 Mg PO DAILY 11/26/16 Reported Metformin Hcl 500 Mg Tablet 500 Mg PO DAILY08 11/26/16 Reported Lipitor (Atorvastatin Calcium) 40 Mg Tablet 40 Mg PO HS 11/26/16 Reported Escitalopram Oxalate 10 Mg Tablet 1 Tab PO DAILY 11/26/16 Reported Duoneb 0.5-3(2.5) Mg/3 Ml (Albuterol/Ipratropium) 3 Ml Ampul.neb 3 Ml NEB QID 11/26/16 Reported Hydrochlorothiazide Tablet (Hydrochlorothiazide) 12.5 Mg Tablet 12.5 Mg PO DAILY 11/26/16 Reported Cefpodoxime Proxetil 200 Mg Tablet 200 Mg PO BID 11/26/16 Reported Azithromycin Tablet (Azithromycin) 250 Mg Tablet 250 Mg PO PRN DAILY 11/26/16 Reported Impression . 1. Acute pulmonary embolism in a patient who was hospitalized for influenza at the end of October and most likely immobilization was a risk factor. However, she does have a family history of thromboembolic disease and I would like to rule out hypercoagulable state. clinically improved. 2. Acute hypoxic respiratory failure. I suspect this is secondary to pulmonary embolism; the followup CT chest has shown no further worsening. There are some ground glass infiltrates, which may suggest some mild pulmonary edema. She did gain 9 pounds while in the hospital. responded to lasix 3. No significant history of tobacco use. 4. Abnormal CT abdomen and pelvis with suspected lesion in the liver and sclerotic lesions in the bones. She also has hiatal hernia with some dilated esophagus. MRI of the liver with hemangioma Plan . 1. off oxygen. 2. prn diuresis 3. MRI of the liver with hemangioma 4. hypercoagulable panel. 5. resume coumadin 6. She will need a minimum of 3-6 months of anticoagulation. 7. Repeat CT chest in 4-6 weeks. 8. Emperic antibiotics. d/c Zosyn, change to PO augmentin 9. Discussed in detail with the patient's . transfer to [facility] XI MAGAÑA MD Nov 28, 2016 10:46
[2016-11-28] MEDS ORDERED: WARFARIN 2.5 MG TABLET. PO ONE (16:00)
[2016-11-28] MEDS: AMOXICILLIN/K CLAV 500/125MG TABLET. PO SCH (21:47)
[2016-11-28] MEDS: METOPROLOL SUCC 24HR ER 25 MG TAB.ER.24H. PO SCH (21:47)
[2016-11-28] MEDS: ATORVASTATIN CALCIUM 40 MG TABLET. PO SCH (21:47)
[2016-11-29 03:00] VITALS: BP 155/83
--- NOTE | 2016-11-29 03:49 | PN ---
DATE: 11/28/2016 SUBJECTIVE: The patient is sitting comfortably in her chair in no apparent distress. She is doing much better. She has no more pain. No shortness of breath. She is maintaining her oxygen saturation at 96% on room air. OBJECTIVE: GENERAL: When I examined her, she looked well and was clearly in no apparent respiratory distress, pale, but no jaundice, cyanosis. No thyromegaly. No jugular venous distention. No limb edema. VITAL SIGNS: Her heart rate was 62, blood pressure was 131/69, temperature was 98.1, respiratory rate 22, and oxygen saturation was 96%. HEAD, EYES, EARS, NOSE AND THROAT: Showed normocephalic, atraumatic. NECK: Supple. HEART: Showed normal first and second heart sounds with no gallop, rub or murmur. CHEST: Clear to auscultation. No crepitation or rhonchi. ABDOMEN: Distended, soft, nontender. No guarding or rigidity. No organomegaly. Hernial orifices intact. Bowel sounds normal. NEUROLOGIC: She is awake, alert, responding appropriately. Cranial nerves intact. She moves extremities without difficulty. She ambulates without assistance or assistive devices, although she continues to be somewhat wobbly and deconditioned. Her intake was 1500, output was 1100. LABORATORY DATA: Showed a white cell count of 5600, hemoglobin 9, hematocrit 27, MCV 90 and platelet count 265,000. Her serum sodium was 144, potassium 3.6, chloride 107, bicarbonate 27, anion gap of 10, BUN 23, creatinine 0.8, estimated GFR was 71 mL per minute. Her glucose 102, calcium was 9.1. Total bilirubin, AST, ALT, alkaline phosphatase were normal. Her total protein was 6.5, albumin 2.4. Her prothrombin time was 27. INR of 2.7. ASSESSMENT: Acute pulmonary embolism in the patient was likely related to immobility and strong family history of thromboembolic disease. Acute hypoxic respiratory failure secondary to pulmonary embolism. She did have abnormal CT scan of the abdomen and pelvis with suspected lesion in the liver that turned out to be a benign hemangioma. The patient is off oxygen. She is now maintaining her oxygen saturation at 96%. We will continue with Coumadin, continue with oral Augmentin. We will transfer to the floor. Consult PT, OT and I have spoken with the patient and her and she is interested in further rehabilitation. I will arrange for her to be discharged to [facility]. HECTOR ROMERO MD DR: SIMIN/camila JOB#: [id number] / [id number]
[2016-11-29 05:32] LABS: HEMATOCRIT 28.1 % (36.0-47.0); HEMOGLOBIN 9.5 g/dL (12.0-15.5); RED BLOOD COUNT 3.14 x10^6/uL (3.50-5.40); RED CELL DISTRIBUTION WIDTH 15.2 % (11.5-14.5); WHITE BLOOD COUNT 6.8 x10^3/uL (4.0-11.0)
[2016-11-29 05:46] LABS: INR 2.3 (0.8-1.1); PROTHROMBIN TIME PATIENT 23.6 SEC (11.7-14.0)
[2016-11-29 05:54] LABS: CALCIUM 8.9 mg/dL (8.5-10.1); CREATININE 0.8 mg/dL (0.6-1.0); GFR 71.5; POTASSIUM 3.6 mmol/L (3.5-5.1)
[2016-11-29 07:25] VITALS: BP 148/98
[2016-11-29] MEDS: INSULIN ASPART 300 UNITS/3 ML INSULN.PEN SQ SCH ×3 (07:44→16:39)
[2016-11-29] MEDS: AMOXICILLIN/K CLAV 500/125MG TABLET. PO SCH ×2 (08:49→20:21)
[2016-11-29] MEDS: PANTOPRAZOLE 40 MG TABLET. PO SCH (08:50)
[2016-11-29] MEDS: GUAIFENESIN DM 600/30MG TAB.ER.12H. PO SCH ×2 (08:50→20:21)
[2016-11-29] MEDS: LIDOCAINE (700MG/PATCH) PATCH. TD SCH (08:51)
[2016-11-29] MEDS: LOSARTAN POTASSIUM 50 MG TABLET. PO SCH (08:51)
[2016-11-29] MEDS: KETOROLAC 15 MG/ML VIAL. IV PRN ×2 (08:52→16:12)
--- NOTE | 2016-11-29 10:03 | PDOC ---
PULMONARY PROGRESS NOTES Subjective still having loose stools off oxygen Vitals Vital Signs Date Time Temp Pulse Resp B/P Pulse Ox O2 Delivery O2 Flow Rate FiO2 11/29/16 08:51 78 148/98 11/29/16 08:00 Room Air 11/29/16 07:25 98.4 18 91 98.4 11/28/16 08:00 2.0 General: Alert, No acute distress Lungs: Clear Cardiovascular: S1 Abdomen: Soft Neuro Exam: Alert Extremities: No Edema Skin: Warm Labs Laboratory Tests Test 11/27/16 13:10 11/27/16 17:50 11/27/16 21:00 11/28/16 04:50 Glucose (Fingerstick) 111mg/dL (70-99) 106mg/dL (70-99) 129mg/dL (70-99) White Blood Count 5.6x10^3/uL (4.0-11.0) Red Blood Count 3.01x10^6/uL (3.50-5.40) Hemoglobin 9.1g/dL (12.0-15.5) Hematocrit 27.1% (36.0-47.0) Mean Corpuscular Volume 90fL (79-100) Mean Corpuscular Hemoglobin 30pg (25-35) Mean Corpuscular Hemoglobin Concent 34g/dL (31-37) Red Cell Distribution Width 15.6% (11.5-14.5) Platelet Count 265x10^3/uL (140-400) Neutrophils (%) (Auto) 53% (31-73) Lymphocytes (%) (Auto) 31% (24-48) Monocytes (%) (Auto) 12% (0-9) Eosinophils (%) (Auto) 4% (0-3) Basophils (%) (Auto) 0% (0-3) Neutrophils # (Auto) 3.0x10^3uL (1.8-7.7) Lymphocytes # (Auto) 1.7x10^3/uL (1.0-4.8) Monocytes # (Auto) 0.7x10^3/uL (0.0-1.1) Eosinophils # (Auto) 0.2x10^3/uL (0.0-0.7) Basophils # (Auto) 0.0x10^3/uL (0.0-0.2) Prothrombin Time 27.0SEC (11.7-14.0) Prothromb Time International Ratio 2.7 (0.8-1.1) Sodium Level 144mmol/L (136-145) Potassium Level 3.6mmol/L (3.5-5.1) Chloride Level 107mmol/L (98-107) Carbon Dioxide Level 27mmol/L (21-32) Anion Gap 10 (6-14) Blood Urea Nitrogen 23mg/dL (7-20) Creatinine 0.8mg/dL (0.6-1.0) Estimated GFR (Cockcroft-Gault) 71.5 BUN/Creatinine Ratio 29 (6-20) Glucose Level 102mg/dL (70-99) Calcium Level 9.1mg/dL (8.5-10.1) Total Bilirubin 0.3mg/dL (0.2-1.0) Aspartate Amino Transf (AST/SGOT) 26U/L (15-37) Alanine Aminotransferase (ALT/SGPT) 54U/L (14-59) Alkaline Phosphatase 68U/L (46-116) Total Protein 6.5g/dL (6.4-8.2) Albumin 2.4g/dL (3.4-5.0) Albumin/Globulin Ratio 0.6 (1.0-1.7) Test 11/28/16 11:14 11/28/16 17:13 11/28/16 21:45 11/29/16 04:40 Glucose (Fingerstick) 101mg/dL (70-99) 100mg/dL (70-99) 125mg/dL (70-99) White Blood Count 6.8x10^3/uL (4.0-11.0) Red Blood Count 3.14x10^6/uL (3.50-5.40) Hemoglobin 9.5g/dL (12.0-15.5) Hematocrit 28.1% (36.0-47.0) Mean Corpuscular Volume 89fL (79-100) Mean Corpuscular Hemoglobin 30pg (25-35) Mean Corpuscular Hemoglobin Concent 34g/dL (31-37) Red Cell Distribution Width 15.2% (11.5-14.5) Platelet Count 282x10^3/uL (140-400) Prothrombin Time 23.6SEC (11.7-14.0) Prothromb Time International Ratio 2.3 (0.8-1.1) Sodium Level 143mmol/L (136-145) Potassium Level 3.6mmol/L (3.5-5.1) Chloride Level 106mmol/L (98-107) Carbon Dioxide Level 28mmol/L (21-32) Anion Gap 9 (6-14) Blood Urea Nitrogen 14mg/dL (7-20) Creatinine 0.8mg/dL (0.6-1.0) Estimated GFR (Cockcroft-Gault) 71.5 Glucose Level 111mg/dL (70-99) Calcium Level 8.9mg/dL (8.5-10.1) Test 11/29/16 07:23 Glucose (Fingerstick) 106mg/dL (70-99) Laboratory Tests Test 11/28/16 11:14 11/28/16 17:13 11/28/16 21:45 11/29/16 04:40 Glucose (Fingerstick) 101mg/dL (70-99) 100mg/dL (70-99) 125mg/dL (70-99) White Blood Count 6.8x10^3/uL (4.0-11.0) Red Blood Count 3.14x10^6/uL (3.50-5.40) Hemoglobin 9.5g/dL (12.0-15.5) Hematocrit 28.1% (36.0-47.0) Mean Corpuscular Volume 89fL (79-100) Mean Corpuscular Hemoglobin 30pg (25-35) Mean Corpuscular Hemoglobin Concent 34g/dL (31-37) Red Cell Distribution Width 15.2% (11.5-14.5) Platelet Count 282x10^3/uL (140-400) Prothrombin Time 23.6SEC (11.7-14.0) Prothromb Time International Ratio 2.3 (0.8-1.1) Sodium Level 143mmol/L (136-145) Potassium Level 3.6mmol/L (3.5-5.1) Chloride Level 106mmol/L (98-107) Carbon Dioxide Level 28mmol/L (21-32) Anion Gap 9 (6-14) Blood Urea Nitrogen 14mg/dL (7-20) Creatinine 0.8mg/dL (0.6-1.0) Estimated GFR (Cockcroft-Gault) 71.5 Glucose Level 111mg/dL (70-99) Calcium Level 8.9mg/dL (8.5-10.1) Test 11/29/16 07:23 Glucose (Fingerstick) 106mg/dL (70-99) Medications Active Scripts Medications Dose Route/Sig Days Date Category Tamiflu (Oseltamivir Phosphate) 75 Mg Capsule 75 Mg PO BID 11/26/16 Reported Omeprazole 20 Mg Tablet.dr 20 Mg PO DAILY 11/26/16 Reported Metoprolol Succinate ( Xl ) (Metoprolol Succinate) 25 Mg Tab.er.24h 50 Mg PO DAILY 11/26/16 Reported Metformin Hcl 500 Mg Tablet 500 Mg PO DAILY08 11/26/16 Reported Lipitor (Atorvastatin Calcium) 40 Mg Tablet 40 Mg PO HS 11/26/16 Reported Escitalopram Oxalate 10 Mg Tablet 1 Tab PO DAILY 11/26/16 Reported Duoneb 0.5-3(2.5) Mg/3 Ml (Albuterol/Ipratropium) 3 Ml Ampul.neb 3 Ml NEB QID 11/26/16 Reported Hydrochlorothiazide Tablet (Hydrochlorothiazide) 12.5 Mg Tablet 12.5 Mg PO DAILY 11/26/16 Reported Cefpodoxime Proxetil 200 Mg Tablet 200 Mg PO BID 11/26/16 Reported Azithromycin Tablet (Azithromycin) 250 Mg Tablet 250 Mg PO PRN DAILY 11/26/16 Reported Impression . 1. Acute pulmonary embolism in a patient who was hospitalized for influenza at the end of October and most likely immobilization was a risk factor. However, she does have a family history of thromboembolic disease and I would like to rule out hypercoagulable state. clinically improved. 2. Acute hypoxic respiratory failure. I suspect this is secondary to pulmonary embolism; the followup CT chest has shown no further worsening. There are some ground glass infiltrates, which may suggest some mild pulmonary edema. She did gain 9 pounds while in the hospital. responded to lasix 3. No significant history of tobacco use. 4. Abnormal CT abdomen and pelvis with suspected lesion in the liver and sclerotic lesions in the bones. She also has hiatal hernia with some dilated esophagus. MRI of the liver with hemangioma 5. Antibiotic associated dirrahea Plan . 1. off oxygen. 2. prn diuresis 3. MRI of the liver with hemangioma 4. hypercoagulable panel pending 5. coumadin per pharmacy/ INR therapeutic 6. She will need a minimum of 3-6 months of anticoagulation. 7. Repeat CT chest in 4-6 weeks. 8. loose stools due to antibiotic. off. d/c Zosyn, on PO augmentin/ d/c zyvox today 9. could go home in am. f/u with me in January with CTA prior to visit XI MAGAÑA MD Nov 29, 2016 10:03
[2016-11-29 11:00] VITALS: BP 149/92
[2016-11-29 15:00] VITALS: BP 157/81
[2016-11-29] MEDS ORDERED: WARFARIN 2.5 MG TABLET. PO ONE (16:22)
[2016-11-29 19:59] VITALS: BP 162/94
[2016-11-29] MEDS: ATORVASTATIN CALCIUM 40 MG TABLET. PO SCH (20:20)
[2016-11-29] MEDS: METOPROLOL SUCC 24HR ER 25 MG TAB.ER.24H. PO SCH (20:21)
[2016-11-29 23:59] VITALS: BP 142/78
[2016-11-30 03:59] VITALS: BP 148/82
--- NOTE | 2016-11-30 05:08 | PN ---
DATE: 11/29/2016 SUBJECTIVE: The patient is sitting slightly propped up in bed, in no apparent distress. She is complaining of having had diarrhea about 3 times. She has been up and about without assistance or assistive devices. She was seen by Dr. Bearden who discontinued all her antibiotics. PHYSICAL EXAMINATION: GENERAL: When I examined her this morning, she was sitting slightly propped up in bed, in no apparent respiratory distress, slightly pale, no jaundice, cyanosis, or thyromegaly. No jugular venous distension. Mild bilateral lower limb edema. VITAL SIGNS: Her heart rate was 78, blood pressure was 148/98, temperature was 98.4, respiratory rate was 18 and oxygen saturation was 91%. HEAD, EYES, EARS, NOSE, AND THROAT: Showed normocephalic, atraumatic. NECK: Supple. HEART: Showed normal first and second heart sounds with no gallop, rub or murmur. CHEST: Clear to auscultation. No crepitation or rhonchi. ABDOMEN: Distended, soft, nontender. NEUROLOGIC: She is awake, alert, responding appropriately. Cranial nerves intact. She moves extremities without difficulty. She ambulates without assistance or assistive devices. Her intake over the last 24 hours was 1500, output was 1100. LABORATORY DATA: This morning showed a serum sodium 143, potassium 3.6, chloride 106, bicarbonate 28, anion gap of 9, BUN 14, creatinine 0.8, estimated GFR was 71 mL per minute. Her glucose 111, calcium was 8.9. Her white cell count was 6800, hemoglobin 9.5, hematocrit 28, MCV 89, and platelet count 282,000. ASSESSMENT: 1. Acute pulmonary embolism in the patient with possible immobilization together with family history of thromboembolic disease. 2. Acute hypoxic respiratory failure likely due to a combination of pulmonary embolism as well as fluid overload. 3. The MRI of the liver showed it was a benign hemangioma. 4. Antibiotic-associated diarrhea. The patient is currently off oxygen, her hypercoagulable panel is pending. Her INR is within therapeutic range. We will continue with 3-6 months of anticoagulation. She is off Zosyn ____ Augmentin and Zyvox are discontinued. PLAN: We will plan to discharge her home tomorrow or to a prison facility depends on her decision. She has an appointment to follow with Dr. Bearden in January. HECTOR ROMERO MD DR: Veronica JOB#: [id number] / [id number]
[2016-11-30 06:59] LABS: CALCIUM 8.9 mg/dL (8.5-10.1); CREATININE 0.7 mg/dL (0.6-1.0); GFR 83.5; POTASSIUM 3.5 mmol/L (3.5-5.1)
[2016-11-30 07:02] LABS: INR 1.7 (0.8-1.1); PROTHROMBIN TIME PATIENT 18.9 SEC (11.7-14.0)
[2016-11-30 07:35] VITALS: BP 149/78
[2016-11-30] MEDS: KETOROLAC 15 MG/ML VIAL. IV PRN (09:26)
[2016-11-30] MEDS: AMOXICILLIN/K CLAV 500/125MG TABLET. PO SCH (09:28)
[2016-11-30] MEDS: LOSARTAN POTASSIUM 50 MG TABLET. PO SCH (09:29)
[2016-11-30] MEDS: PANTOPRAZOLE 40 MG TABLET. PO SCH (09:29)
[2016-11-30] MEDS: GUAIFENESIN DM 600/30MG TAB.ER.12H. PO SCH (09:29)
[2016-11-30] MEDS: LIDOCAINE (700MG/PATCH) PATCH. TD SCH (09:30)
[2016-11-30] MEDS: FENTANYL 25MCG/HR PATCH. TD SCH (09:30)
[2016-11-30] MEDS: INSULIN ASPART 300 UNITS/3 ML INSULN.PEN SQ SCH ×2 (09:31→12:23)
[2016-11-30 11:27] VITALS: BP 154/92
[2016-11-30] MEDS ORDERED: WARF4TAB PO (11:50)
[2016-11-30] MEDS ORDERED: METO25TA9 PO (11:50)
[2016-11-30] MEDS ORDERED: ATOR40TA PO (11:50)
[2016-11-30] MEDS ORDERED: LOSA50TA6 PO (11:50)
[2016-11-30] MEDS ORDERED: ONDA4TAB7 PO (11:50)
[2016-11-30] MEDS ORDERED: LIDO700A4 TP (11:50)
[2016-11-30] MEDS ORDERED: HYDR12.58 PO (11:50)
[2016-11-30] MEDS ORDERED: OXYC-323 PO (11:50)
[2016-11-30] MEDS ORDERED: PANT40TA3 PO (11:50)
[2016-11-30] MEDS ORDERED: ACETAMINOPHEN 325 MG TABLET. PO PRN (14:15)
--- NOTE | 2016-11-30 14:15 | PDOC ---
PULMONARY PROGRESS NOTES Subjective still having loose stools off oxygen Vitals Vital Signs Date Time Temp Pulse Resp B/P Pulse Ox O2 Delivery O2 Flow Rate FiO2 11/30/16 11:27 76 16 154/92 95 Room Air 11/30/16 07:35 98.5 98.5 General: Alert, No acute distress Lungs: Clear Cardiovascular: S1 Abdomen: Soft Neuro Exam: Alert Extremities: No Edema Skin: Warm Labs Laboratory Tests Test 11/28/16 17:13 11/28/16 21:45 11/29/16 04:40 11/29/16 07:23 Glucose (Fingerstick) 100mg/dL (70-99) 125mg/dL (70-99) 106mg/dL (70-99) White Blood Count 6.8x10^3/uL (4.0-11.0) Red Blood Count 3.14x10^6/uL (3.50-5.40) Hemoglobin 9.5g/dL (12.0-15.5) Hematocrit 28.1% (36.0-47.0) Mean Corpuscular Volume 89fL (79-100) Mean Corpuscular Hemoglobin 30pg (25-35) Mean Corpuscular Hemoglobin Concent 34g/dL (31-37) Red Cell Distribution Width 15.2% (11.5-14.5) Platelet Count 282x10^3/uL (140-400) Prothrombin Time 23.6SEC (11.7-14.0) Prothromb Time International Ratio 2.3 (0.8-1.1) Sodium Level 143mmol/L (136-145) Potassium Level 3.6mmol/L (3.5-5.1) Chloride Level 106mmol/L (98-107) Carbon Dioxide Level 28mmol/L (21-32) Anion Gap 9 (6-14) Blood Urea Nitrogen 14mg/dL (7-20) Creatinine 0.8mg/dL (0.6-1.0) Estimated GFR (Cockcroft-Gault) 71.5 Glucose Level 111mg/dL (70-99) Calcium Level 8.9mg/dL (8.5-10.1) Test 11/29/16 11:53 11/29/16 13:00 11/29/16 16:26 11/29/16 20:17 Glucose (Fingerstick) 82mg/dL (70-99) 89mg/dL (70-99) 129mg/dL (70-99) Clostridium difficile Toxin (PCR) Negative (Negative) Test 11/30/16 06:08 11/30/16 07:30 11/30/16 11:52 Prothrombin Time 18.9SEC (11.7-14.0) Prothromb Time International Ratio 1.7 (0.8-1.1) Sodium Level 143mmol/L (136-145) Potassium Level 3.5mmol/L (3.5-5.1) Chloride Level 106mmol/L (98-107) Carbon Dioxide Level 27mmol/L (21-32) Anion Gap 10 (6-14) Blood Urea Nitrogen 11mg/dL (7-20) Creatinine 0.7mg/dL (0.6-1.0) Estimated GFR (Cockcroft-Gault) 83.5 Glucose Level 114mg/dL (70-99) Calcium Level 8.9mg/dL (8.5-10.1) Glucose (Fingerstick) 125mg/dL (70-99) 110mg/dL (70-99) Laboratory Tests Test 11/29/16 16:26 11/29/16 20:17 11/30/16 06:08 11/30/16 07:30 Glucose (Fingerstick) 89mg/dL (70-99) 129mg/dL (70-99) 125mg/dL (70-99) Prothrombin Time 18.9SEC (11.7-14.0) Prothromb Time International Ratio 1.7 (0.8-1.1) Sodium Level 143mmol/L (136-145) Potassium Level 3.5mmol/L (3.5-5.1) Chloride Level 106mmol/L (98-107) Carbon Dioxide Level 27mmol/L (21-32) Anion Gap 10 (6-14) Blood Urea Nitrogen 11mg/dL (7-20) Creatinine 0.7mg/dL (0.6-1.0) Estimated GFR (Cockcroft-Gault) 83.5 Glucose Level 114mg/dL (70-99) Calcium Level 8.9mg/dL (8.5-10.1) Test 11/30/16 11:52 Glucose (Fingerstick) 110mg/dL (70-99) Medications Active Scripts Medications Dose Route/Sig Days Date Category Tamiflu (Oseltamivir Phosphate) 75 Mg Capsule 75 Mg PO BID 11/26/16 Reported Omeprazole 20 Mg Tablet.dr 20 Mg PO DAILY 11/26/16 Reported Metoprolol Succinate ( Xl ) (Metoprolol Succinate) 25 Mg Tab.er.24h 50 Mg PO DAILY 11/26/16 Reported Metformin Hcl 500 Mg Tablet 500 Mg PO DAILY08 11/26/16 Reported Lipitor (Atorvastatin Calcium) 40 Mg Tablet 40 Mg PO HS 11/26/16 Reported Escitalopram Oxalate 10 Mg Tablet 1 Tab PO DAILY 11/26/16 Reported Duoneb 0.5-3(2.5) Mg/3 Ml (Albuterol/Ipratropium) 3 Ml Ampul.neb 3 Ml NEB QID 11/26/16 Reported Hydrochlorothiazide Tablet (Hydrochlorothiazide) 12.5 Mg Tablet 12.5 Mg PO DAILY 11/26/16 Reported Cefpodoxime Proxetil 200 Mg Tablet 200 Mg PO BID 11/26/16 Reported Azithromycin Tablet (Azithromycin) 250 Mg Tablet 250 Mg PO PRN DAILY 11/26/16 Reported Impression . 1. Acute pulmonary embolism in a patient who was hospitalized for influenza at the end of October and most likely immobilization was a risk factor. However, she does have a family history of thromboembolic disease and hypercoagulable state w/u is still pending.(homocysteine normal) clinically improved. 2. Acute hypoxic respiratory failure secondary to pulmonary embolism; the followup CT chest has shown no further worsening. There are some ground glass infiltrates, which may suggest some mild pulmonary edema. She did gain 9 pounds while in the hospital. responded to lasix 3. No significant history of tobacco use. 4. Abnormal CT abdomen and pelvis with suspected lesion in the liver and sclerotic lesions in the bones. She also has hiatal hernia with some dilated esophagus. MRI of the liver with hemangioma 5. Antibiotic associated dirrahea Plan . 1. off oxygen. 2. prn diuresis 3. MRI of the liver with hemangioma 4. hypercoagulable panel pending 5. coumadin per pharmacy/ INR sub-therapeutic 6. She will need a minimum of 3-6 months of anticoagulation. 7. Repeat CT chest in 4-6 weeks. 8. loose stools due to antibiotic. off. d/c Zosyn, on PO augmentin/ off zyvox 9. could go home in am. f/u with me in January with CTA prior to visit XI MAGAÑA MD Nov 30, 2016 14:15
[2016-11-30] MEDS ORDERED: WARFARIN 4 MG TABLET. PO ONE (16:00)
--- NOTE | 2016-11-30 20:56 | DS ---
DATE OF DISCHARGE: 11/30/2016 HOSPITAL COURSE: The patient is a 66-year-old female patient who was originally admitted to [facility] with swelling, pain in her left upper extremity and sudden onset chest pain, mostly in the right side posteriorly. Investigation showed that she has bilateral pulmonary emboli, for which she was started on Lovenox and Coumadin. The patient continued to have severe right-sided chest pain and marked hypoxemia. She has also gained some about 9 pounds fluid and therefore, a decision was made to transfer her to [facility] and was in fact evaluated by the parts lister. She was started on Lasix and she did actually extremely well. We did continue treatment with IV antibiotic in the form of Zosyn and Zyvox that was subsequently discontinued and there was suspicion that she might have malignant tumor in her right lobe of the liver as the CT scan showed the vascular lesion there; however, the MRI showed it was a benign hemangioma. She did have sclerotic lesion in her spine, for that we will arrange for her to have a bone scan as an outpatient. The patient did very well, remained hemodynamically stable, afebrile, her oxygen saturation was 96% on room air, but she continued to have some weakness and deconditioning, a decision was made to discharge her to [facility] to continue with physical therapy. PHYSICAL EXAMINATION: GENERAL: When I saw her today, she looked well and was clearly in no apparent respiratory distress, pale, but no jaundice, cyanosis, or thyromegaly. No jugular venous distention. No limb edema. VITAL SIGNS: Her heart rate was 76, blood pressure 154/92, temperature was 98.5, respiratory rate was 16, and oxygen saturation was 96% on room air. HEAD, EYES, EARS, NOSE AND THROAT: Normocephalic, atraumatic. NECK: Supple. HEART: Showed normal first and second heart sounds with no gallop, rub or murmur. CHEST: Clear to auscultation. No crepitation or rhonchi. ABDOMEN: Distended, soft, nontender. No guarding or rigidity. No organomegaly. Hernial orifices intact. Bowel sounds normal. NEUROLOGICAL: She was awake, alert, responding appropriately. Cranial nerves intact. She moves extremities without difficulty. She ambulates without assistance or with assistive devices. LABORATORY DATA: Her lab work this morning showed a white cell count 6800, hemoglobin 9.5, hematocrit 28, MCV 89 and platelet count 282,000. Her chemistry showed a serum sodium 143, potassium 3.5, chloride 106, bicarbonate 27, anion gap of 10, BUN 11, creatinine 0.7, estimated GFR was 84 mL per minute. Her glucose 114, calcium was 8.9. Her thrombin time this morning was 18.9, INR 1.7. DISCHARGE MEDICATIONS: The patient was discharged to the [facility] facility to continue on atorvastatin, calcium 40 mg at bedtime, hydrochlorothiazide 25 mg once a day, Lidoderm patch 1 patch topically on for 12 hours and off for 12 hours, losartan potassium 50 mg once a day, metoprolol succinate 25 mg once a day, ondansetron ODT 4 mg every 6 hours as needed for nausea and vomiting, oxycodone/acetaminophen 5/325 mg one tablet every 6 hours as needed, Protonix 40 mg once a day and warfarin 4 mg once a day. Should have her prothrombin time and INR checked on Friday and with an aim to maintain her INR between 2-2.5. FINAL DISCHARGE DIAGNOSES: 1. Acute pulmonary embolism in a patient with possible immobilization together with family history of thromboembolic disease. 2. Acute hypoxic respiratory failure likely due to a combination of pulmonary embolism as well as fluid overload. 3. The MRI of the liver showed that she has benign hemangioma. 4. Antibiotic-associated diarrhea; however, the stool was negative for C. diff. 5. Other issues include type 2 diabetes mellitus, hyperlipidemia, and hypertension. HECTOR ROMERO MD DR: SIMIN/camila JOB#: [id number] / [id number]
== END 2016-11-30 14:35 | DRG 175 ==
LOC: 1 WEST ICU 10:53 → 5 SOUTH 11-28 20:50
PROVIDERS: ADMIT Internal Medicine; ATTEND Internal Medicine
DX: I26.99 Other pulmonary embolism without acute cor pulmonale (principal); I50.31 Acute diastolic (congestive) heart failure; J96.01 Acute respiratory failure with hypoxia; E87.2 Acidosis; K52.1 Toxic gastroenteritis and colitis; K21.9 Gastro-esophageal reflux disease without esophagitis; E78.5 Hyperlipidemia, unspecified; E11.9 Type 2 diabetes mellitus without complications; M19.90 Unspecified osteoarthritis, unspecified site; K57.90 Diverticulosis of intestine, part unspecified, without perforation or abscess without bleeding; I11.0 Hypertensive heart disease with heart failure; D18.03 Hemangioma of intra-abdominal structures; E87.6 Hypokalemia; I07.1 Rheumatic tricuspid insufficiency; I34.0 Nonrheumatic mitral (valve) insufficiency; K22.70 Barrett's esophagus without dysplasia; K44.9 Diaphragmatic hernia without obstruction or gangrene; T36.95XA Adverse effect of unspecified systemic antibiotic, initial encounter; Z80.0 Family history of malignant neoplasm of digestive organs; Z88.6 Allergy status to analgesic agent; Z90.49 Acquired absence of other specified parts of digestive tract; Z82.3 Family history of stroke; Z82.5 Family history of asthma and other chronic lower respiratory diseases; Z86.711 Personal history of pulmonary embolism; Z86.72 Personal history of thrombophlebitis; Z87.11 Personal history of peptic ulcer disease; Z79.899 Other long term (current) drug therapy; Z79.82 Long term (current) use of aspirin
CPT/HCPCS: 36415; 74183; 76705; 80048; 80053; 80061; 82947; 83090; 83735; 83880; 84443; 85007; 85027; 85220; 85610; 86147; 87324; 87641; 94250; 94640; A9585; J1170; J1815; J1885; J2020; J2405; J2543; J7620

== ENCOUNTER → 2017-01-10 | Outpatient (CLI) | payer MEDICARE, BC ==
[~2017-01-10] MED LIST: ALBU2.5V5 NEB; ATOR40TA PO; AZIT250T6 PO; CEFP200T PO; DIVA500T4 PO; DOCU-27 PO; ESCI10TA PO; ESZO3TAB9 PO; FAMO-63 PO; FLUO20CA16 PO; FURO-68 PO; GABA-585 PO; HYDR-2679 PO; HYDR12.58 PO; IOHEXOL 300 MG/ML 75 ML VIAL IV ONE; IPRA3AMP NEB; LIDO700A4 TP; LORA-434 PO; LORA2TAB89 PO; LOSA50TA6 PO; MAGN400T3 PO; METF500T4 PO; METO25TA4 PO; METO25TA9 PO; METO5TAB4 PO; MEXI200C PO; NITR1PAT9 TD; OLAN5TAB3 PO; OMEP20TA PO; ONDA4TAB7 PO; OSEL75CA PO; OXYC-323 PO; PANT40GR PO; PANT40TA3 PO; SPIR25TA3 PO; WARF4TAB PO
[2017-01-10 08:38] LABS: CREATININE 0.9 mg/dL (0.6-1.0); GFR 62.5
--- NOTE | 2017-01-10 09:44 | RAD ---
CT pulmonary angiogram with contrast History: Follow-up pulmonary embolism. Comparison: CT pulmonary angiogram 11/20/2016 performed at [facility]. Technique: Helical CT angiogram of the chest with attention to the pulmonary arteries was performed after the administration of intravenous contrast, 75 mL Omnipaque 300. Axial 2-D reconstructions were obtained. Coronal 3-D MIPS were also obtained. One or more of the following individualized dose reduction techniques were utilized for the study: Automated exposure control Adjustment of mA and/or kV according to patient's size Use of iterative reconstruction technique. Findings: Pulmonary arteries are adequately opacified. There is no evidence of pulmonary embolism. The previously identified pulmonary embolism has resolved. Trachea and mainstem bronchi appear patent. No mediastinal lymphadenopathy is seen. Thoracic aorta has normal caliber. Heart and pericardium are unremarkable. Moderate hiatal hernia is seen. No pneumothorax or pleural effusion is appreciated. There is a small focus of consolidation which is roughly wedge-shaped at the right lung base measuring about 2.5 cm in maximum dimension. This may represent resolving pulmonary infarction versus scarring given history of pulmonary embolism. Images of the upper abdomen are notable for peripherally calcified distal left renal arterial aneurysm estimated to measure 9 mm in diameter. This is located at the renal sara. There is mild dextroconvex curvature of the thoracic spine. Impression: 1. Interval resolution of previously identified pulmonary embolism. 2. Small, roughly wedge-shaped focus of consolidation involving the posterior right lung base. This could represent resolving pulmonary infarction versus scarring given history of pulmonary embolism. 3. Hiatal hernia. 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
== END | disposition home or self-care (01) ==
LOC: CT 08:10
PROVIDERS: ATTEND Internal Medicine Critical Care Medicine
DX: K44.9 Diaphragmatic hernia without obstruction or gangrene (principal); I72.2 Aneurysm of renal artery
CPT/HCPCS: 36415; 71275; 82565; 84520

== ENCOUNTER → 2017-03-26 | Outpatient (CLI) | payer MEDICARE, BC ==
[~2017-03-26] MED LIST changes: +DOCU-109 PO; -DOCU-27 PO; -ESCI10TA PO; +ESCITALOPRAM OX10 MG PO; +ESZO3TAB28 PO; -ESZO3TAB9 PO; -IOHEXOL 300 MG/ML 75 ML VIAL IV ONE; -OMEP20TA PO; +OMEP20TA8 PO; -WARF4TAB PO; +WARF4TAB68 PO
--- NOTE | 2017-03-26 11:39 | RAD ---
Indication lung nodule. Follow-up. Noncontrast images through the chest were obtained and are compared to an exam 01/20/2017. Imaging through the upper abdomen is unremarkable. The mediastinum appears unremarkable. There are chronic pleural-parenchymal changes. A new finding in the chest or acute finding is not seen. Previously identified wedge-shaped parenchymal opacity in the right lower lobe persists but appears smaller. This probably reflects an area of scarring. Continued follow-up is advised. Malignancy is very unlikely given the decrease in size. IMPRESSION: No acute finding in the chest. Wedge-shaped opacity posteriorly in the right lower lobe is smaller most compatible with an area of scarring. Continued follow-up advised. PQRS Compliance Statement: One or more of the following individualized dose reduction techniques were utilized for this examination: 1. Automated exposure control 2. Adjustment of the mA and/or kV according to patient size 3. Use of iterative reconstruction technique
== END | disposition home or self-care (01) ==
LOC: CT 10:11
PROVIDERS: ATTEND Internal Medicine Critical Care Medicine
DX: R91.8 Other nonspecific abnormal finding of lung field (principal)
CPT/HCPCS: 71250